=== PATIENT | male | born 1990 | race Caucasian/White ===

== ENCOUNTER 2017-04-21 13:49 | Emergency (ER) | payer BC ==
[~2017-04-21] VITALS: Ht 172.7 cm; Wt 124.7 kg
--- OUTSIDE RECORDS SUMMARY | 2017-04-21 14:07 | External Medical Summary Rpt | CCD ---
Author Author , ANEESH MELENDREZ Address Unknown Phone [email or web address] Care Team Providers Care Band Singer Name Role Phone VIOLET CARLENE, Unavailable Unavailable CARLENE LAZO JESSICA D, Unavailable Unavailable [facility] Unavailable Unavailable [facility], [facility] LONI BUCIO, Unavailable Unavailable LONI BUCIO WILLIAM A, Unavailable Unavailable [facility]ET [facility] Unavailable Unavailable PHYSICIANS, [facility] Unavailable Unavailable PHARMACY [facility] Unavailable Unavailable PHARMACY, [facility], Unavailable Unavailable [facility] RICHARD S, Unavailable Unavailable SIGIFREDO MARTINEZ KIMBERLY, KEEF, Unavailable Unavailable ABBI JOHNSON V, Unavailable Unavailable ABBI MCKEON V [facility] Unavailable Unavailable [place], [facility], [facility], [facility] BENEFITS ANALYST Unavailable Unavailable [facility] BENEFITS ANALYST [facility] Unavailable Unavailable [facility] RADIOLOGY ASSOCIAT MARKELL COSTA, Unavailable Unavailable MARKELL COSTA IRVING, PECK, Unavailable Unavailable [facility] Unavailable Unavailable OF [facility], [facility] SAM ARGUELLO, Unavailable Unavailable SAM ARGUELLO [facility] Unavailable Unavailable EMERGENCY PHYS, [facility] [id number], Unavailable Unavailable [facility] [id number] [facility] Unavailable Unavailable #1569, [facility] VELVET DE PAZ III, Unavailable Unavailable VELVET DE PAZ III Continuity of Care Document - 06-24-2007 through 2016 Problems Code Diagnosis DOS Provider Status [id number] CONTUSION 03-30-2016 [facility] LEFT EMERGENCY HAND PHYSICIANS INITIAL ENCOUNTER [id number] UNSPECIFIED 03-30-2016 RADIOLOGY INJURY UNS ASSOCIATES WRIST HAND OF [facility] FINGERS INIT [id number] PAIN IN 03-08-2016 [place] RIGHT [facility] RADIOLOGY ASSOCIAT [id number] CONTUSION 03-08-2016 [facility] OF RIGHT N EMERGENCY HAND PHYS INITIAL ENCOUNTER [id number] UNSPECIFIED 03-08-2016 [facility] INJURY RT RADIOLOGY WRIST HAND ASSOCIAT FINGERS INITIAL [id number] EXPOSURE TO 03-08-2016 [facility] OTHER N EMERGENCY SPECIFIED PHYS FACTORS INITIAL ENC V51681 PAIN IN 02-21-2016 RADIOLOGY LEFT ASSOCIATES SHOULDER OF [facility] [id number] PAIN IN 02-21-2016 RADIOLOGY UNSPECIFIED ASSOCIATES SHOULDER OF [facility] [id number] STRN UNS 02-21-2016 [facility] M&T SHLDR EMERGENCY UP ARM LEVL PHYSICIANS LT ARM INIT ENC T1490 INJURY 02-21-2016 RADIOLOGY UNSPECIFIED ASSOCIATES OF [facility] 7840 HEADACHE 02-13-2009 [facility] HEALTH CENTRAL BANK ACCT 9190 ABRASION/FR 02-07-2009 [facility] ICION BURN [facility] MX&UNS CENTRAL SITE W/O BANK ACCT INF 9221 CONTUSION 01-11-2009 [facility] CHEST EMERGENCY WALL SERVICES ASSOCIATES 9199 OT&UNSPEC 10-27-2008 DHS/CO SUP INJURY HEALTH OT CENTRAL MX&UNSPEC BANK ACCT SITES INF 14584 PAIN IN 10-25-2008 [facility]INT, DIAGNOSTIC ANKLE AND CENTER, [facility] FOOT 13090 CONTUSION 10-25-2008 SH[facility]ICE ME OF FO[facility] CENTER[facility] 9599 INJURY 10-25-2008 [facility] OTHER AND RADIOLOGY UNSPECIFIED ASSOCIATES PSC UNSPECIFIED SITE 9597 INJURY 10-14-2008 DHS/CO OTHER&UNSPE HEALTH CIFIED KNEE CENTRAL LEG BANK ACCT ANKLE&FOOT 68594 PAIN IN 09-08-2008 [facility], RADIOLOGY LOWER LEG ASSOCIATES PSC 8449 SPRAIN&STRA 09-08-2008 JACKELIN IN OF EMERGENCY UNSPECIFIED SERVICES SITE OF ASSOCIATES KNEE&LEG 460 ACUTE 08-22-2008 [facility] NASOPHARYNG PRIMARY ITIS CARE CENTERINC V703 OT GENERAL 08-22-2008 [facility] MEDICAL PRIMARY EXAMINATION CARE ADMIN CENTERINC PURPOSES 4619 ACUTE 07-07-2008 [facility]ICE [facility] SINUSITIS, PRIMARY UNSPECIFIED CARE CENTERINC 462 ACUTE 07-07-2008 [facility] PHARYNGITIS PRIMARY CARE CENTERINC 7841 THROAT PAIN 07-06-2008 [facility] HEALTH CENTRAL BANK ACCT 00638 HORDEOLUM 06-24-2008 VIOLET, EXTERNUM CARLENE 3670 HYPERMETROP 04-08-2008 [facility] 79260 REGULAR 04-08-2008 [facility] ASTIGMATISM OPTICAL 6809 CARBUNCLE 03-01-2008 [facility] FURUNCLE OF FAMILY CARE, INC. UNSPECIFIED SITE 6829 CELLULITIS 11-23-2007 HEALTH AND ABSCESS POINT OF FAMILY UNSPECIFIED CARE, INC. SITE 3814 NONSUPPRATV 10-14-2007 HEALTH OTITIS POINT MEDIA NOT FAMILY SPEC CARE, INC. ACUT/CHRON 11402 CENTRAL 10-14-2007 [facility] HEARING [facility] LOSS [facility] CARE, INC. 95417 ONYCHIA AND 08-19-2007 JACKELIN PARONYCHIA EMERGENCY OF FINGER SERVICES ASSOC PSC 7295 PAIN IN 08-19-2007 BRYON MARTINEZ S TISSUES OF LIMB 4659 ACUTE URIS 06-24-2007 [facility] UNSPECIFIED FAMILY SITE CARE, INC. Medications Na ND Rx Da Fi Fi Am Da Di Ph RX Ph St me C No te ll ll ou ys ag ar # ys at rm s nt no ma ic us Or Da si cy ia de te s n re d GARCIA 53 05 05 00 20 10 WA 74 KE Ac LF 74 -1 -2 .0 L- 06 EF ti AM 60 2- 1- 00 MA 12 ve ET 27 20 20 RT 3 KI HO 20 09 09 MB XA 5 PH ER ZO AR LY LE MA -T CY MP #1 DS 56 9 TA BL ET ET 51 03 04 00 14 3 WA 73 RH Ac OD 67 -2 -0 .0 L- 98 OD ti OL 24 6- 9- 00 MA 18 ES ve AC 01 20 20 RT 3 60 09 09 ED 20 1 PH GA 0 AR R MG MA L CY CA PS #1 UL 56 E 9 63 01 01 00 20 10 MA 60 GI Ac 30 -2 -3 .0 YS 06 LL ti 40 2- 0- 00 45 IS ve 76 20 20 LL 9 32 09 09 E AN 0 OB NE /G E YN FA RI LY HE AL TH 00 01 01 00 3. 5 WA 73 No Ac 16 -0 -1 50 L- 84 t ti 80 9- 5- 0 MA 52 Av ve 07 20 20 RT 6 ai 03 09 09 la 8 PH bl AR e MA CY #1 56 9 GARCIA 53 09 09 00 20 10 FL 60 ME Ac LF 48 -1 -2 .0 AG 08 YE ti AM 90 6- 6- 00 G 00 RS ve ET 14 20 20 SP 3 HO 60 08 08 RI TH XA 5 NG OM ZO S LE PH E -T AR MP MA CY DS TA BL ET MU 45 09 09 00 22 7 FL 60 ME Ac PI 80 -1 -2 .0 AG 08 YE ti RO 20 6- 6- 00 G 00 RS ve CI 11 20 20 SP 2 N 22 08 08 RI TH 2% 2 NG OM S OI PH E NT AR ME MA NT CY GARCIA 53 03 04 00 40 10 WA 73 No Ac LF 74 -1 -1 .0 L- 33 t ti AM 60 0- 7- 00 MA 51 Av ve ET 27 20 20 RT 4 ai HO 20 08 08 la XA 5 PH bl ZO A1 e LE 0- -T 15 MP 69 DS TA BL ET 63 03 04 00 20 10 WA 73 No Ac 30 -0 -0 .0 L- 32 t ti 40 5- 7- 00 MA 74 Av ve 71 20 20 RT 4 ai 32 08 08 la 0 PH bl A1 e 0- 15 69 60 01 03 00 12 6 DE 63 No Ac 25 -0 -2 0. AN 59 t ti 80 9- 4- 00 S 43 Av ve 23 20 20 0 PH 7 ai 91 08 08 AR la 6 MA bl CY e Encounters Encounter Start End Date Code Location Performer Type Date [facility] ANNE MARIE - 8 8 W [facility]
--- OUTSIDE RECORDS SUMMARY | 2017-04-21 14:07 | External Medical Summary Rpt | CCD ---
Author Author , ANEESH MELENDREZ Address Unknown Phone [email or web address] Care Team Providers Care Obstetrical Nurse Name Role Phone VIOLET CARLENE, Unavailable Unavailable CARLENE LAZO JESSICA D, Unavailable Unavailable [facility] Unavailable Unavailable [facility], [facility] LONI BUCIO, Unavailable Unavailable LONI BUCIO WILLIAM A, Unavailable Unavailable [facility]ET [facility] Unavailable Unavailable PHYSICIANS, [facility] Unavailable Unavailable PHARMACY [facility] Unavailable Unavailable PHARMACY, [facility], Unavailable Unavailable [facility] RICHARD S, Unavailable Unavailable SIGIFREDO MARTINEZ KIMBERLY, KEEF, Unavailable Unavailable ABBI JOHNSON V, Unavailable Unavailable ABBI MCKEON V [facility] Unavailable Unavailable [place], [facility], [facility], [facility] HEALTH CARE CONSULTANT Unavailable Unavailable [facility] HEALTH CARE CONSULTANT [facility] Unavailable Unavailable [facility] RADIOLOGY ASSOCIAT MARKELL COSTA, Unavailable Unavailable MARKELL COSTA IRVING, PECK, Unavailable Unavailable [facility] Unavailable Unavailable OF [facility], [facility] SAM ARGUELLO, Unavailable Unavailable SAM ARGUELLO [facility] Unavailable Unavailable EMERGENCY PHYS, [facility] PHYS [facility] [id number], Unavailable Unavailable [facility] [id number] [facility] Unavailable Unavailable #1569, [facility] VELVET DE PAZ III, Unavailable Unavailable VELVET DE PAZ III Continuity of Care Document - 06-24-2007 through 2016 Problems Code Diagnosis DOS Provider Status [id number] CONTUSION 03-30-2016 [facility] LEFT EMERGENCY HAND PHYSICIANS INITIAL ENCOUNTER [id number] UNSPECIFIED 03-30-2016 RADIOLOGY INJURY UNS ASSOCIATES WRIST HAND OF [facility] FINGERS INIT B91360 PAIN IN 03-08-2016 [place] RIGHT HAND RADIOLOGY ASSOCIAT [id number] CONTUSION 03-08-2016 [facility] OF RIGHT N EMERGENCY HAND PHYS INITIAL ENCOUNTER [id number] UNSPECIFIED 03-08-2016 [place] INJURY RT RADIOLOGY WRIST HAND ASSOCIAT FINGERS INITIAL [id number] EXPOSURE TO 03-08-2016 [facility] OTHER N EMERGENCY SPECIFIED PHYS FACTORS INITIAL ENC O59536 PAIN IN 02-21-2016 RADIOLOGY LEFT ASSOCIATES SHOULDER OF [facility] Q07133 PAIN IN 02-21-2016 RADIOLOGY UNSPECIFIED ASSOCIATES SHOULDER OF [facility] [id number] STRN UNS 02-21-2016 [facility] M&T SHLDR EMERGENCY UP ARM LEVL PHYSICIANS LT ARM INIT ENC T1490 INJURY 02-21-2016 RADIOLOGY UNSPECIFIED ASSOCIATES OF [facility] 7840 HEADACHE 02-13-2009 [facility] CENTRAL BANK ACCT 9190 ABRASION/FR 02-07-2009 [facility] ICION BURN [facility] MX&UNS CENTRAL SITE W/O BANK ACCT INF 9221 CONTUSION 01-11-2009 [facility] EMERGENCY WALL SERVICES ASSOCIATES 9199 OT&UNSPEC 10-27-2008 [facility] SUP INJURY HEALTH OT CENTRAL MX&UNSPEC BANK ACCT SITES INF 45689 PAIN IN 10-25-2008 [facility]INT, DIAGNOSTIC ANKLE AND CENTER, [facility] FOOT 09690 CONTUSION 10-25-[address] [facility] FO[facility] 9599 INJURY 10-25-2008 [facility] OTHER AND RADIOLOGY UNSPECIFIED ASSOCIATES PSC UNSPECIFIED SITE 9597 INJURY 10-14-2008 [facility] OTHER&UNSPE HEALTH CIFIED KNEE CENTRAL LEG BANK ACCT ANKLE&FOOT 08278 PAIN IN 09-08-2008 [facility], RADIOLOGY LOWER LEG ASSOCIATES PSC 8449 [...] PAIN 07-06-2008 [facility] HEALTH CENTRAL BANK ACCT 65203 HORDEOLUM 06-24-2008 VIOLET, EXTERNUM CARLENE 3670 HYPERMETROP 04-08-2008 [facility] 56792 REGULAR 04-08-2008 J[facility]UA ASTIGMATISM OPTICAL 6809 CARBUNCLE 03-01-2008 [facility] FURUNCLE OF FAMILY CARE, INC. UNSPECIFIED SITE 6829 CELLULITIS 11-23-2007 HEALTH AND ABSCESS [facility] OF FAMILY UNSPECIFIED CARE, INC. SITE 3814 NONSUPPRATV 10-14-2007 HEALTH OTITIS POINT MEDIA NOT FAMILY SPEC CARE, INC. ACUT/CHRON 61167 CENTRAL 10-14-2007 [facility]ALTH HEARING [facility] LOSS [facility] CARE, INC. 33503 ONYCHIA AND 08-19-2007 JACKELIN PARONYCHIA EMERGENCY OF [...] 0 OB NE /G E YN FA LA LY HE AL TH 00 01 01 [...] Date Code Location Performer [facility] ANNE MARIE - 8 8 W [facility]
--- OUTSIDE RECORDS SUMMARY | 2017-04-21 14:08 | External Medical Summary Rpt ---
Author Author ANEESH Huertas, ANEESH Production Organization [employer] Address Unknown Phone Unavailable
--- OUTSIDE RECORDS SUMMARY | 2017-04-21 14:08 | External Medical Summary Rpt | CCD ---
Author Author , ANEESH MELENDREZ Address Unknown Phone [email or web address] Name Relationship Address Phone JUAN RAMON, Next Of Kin Unknown Unavailable LOIS Immunization Name Date Rout CVX Reac Dose Comm Prov Is Faci e tion ent ider Refu lity Give sed n Tdap 08-1 115 999 Hist 1005 No 1005 , 2-20 oric 00 00 Adso 16 al rbed Info rmat ion - Sour ce Unsp ecif ied Td 05-0 9 999 Hist H181 No H181 (adry 5-20 oric lt), 05 al Info adso rmat rbed ion - Sour ce Unsp ecif ied Hep 03-2 8 999 Hist H181 No H181 B, 6-20 oric ped/ 03 al adol Info rmat ion - Sour ce Unsp ecif ied Hep 01-0 8 999 Hist H181 No H181 B, 7-20 oric ped/ 03 al adol Info rmat ion - Sour ce Unsp ecif ied Hep 11-2 8 999 Hist H181 No H181 B, 1-20 oric ped/ 02 al adol Info rmat ion - Sour ce Unsp ecif ied Pranav 12-0 2 999 Hist H181 No H181 o-OP 4-19 oric V 96 al Info rmat ion - Sour ce Unsp ecif ied DTaP 12-0 Intr 107 999 Hist H181 No H181 , UF 4-19 amus oric 96 cula al r Info rmat ion - Sour ce Unsp ecif ied MMR 12-0 3 999 Hist H181 No H181 4-19 oric 96 al Info rmat ion - Sour ce Unsp ecif ied
--- OUTSIDE RECORDS SUMMARY | 2017-04-21 14:08 | External Medical Summary Rpt | CCD ---
Author Author , ANEESH Organization [facility] Address Unknown Phone [email or web address] Care Team Providers Care Stationary Boiler Fireman Name Role Phone VIOLET CARLENE, Unavailable Unavailable CARLENE LAZO JESSICA D, Unavailable Unavailable [facility] Unavailable Unavailable [facility], [facility] LONI BUCIO, Unavailable Unavailable LONI BUCIO WILLIAM A, Unavailable Unavailable VEL[facility]ET P[facility] Unavailable Unavailable PHYSICIANS, [facility]YSIC[facility] Unavailable Unavailable PHARMACY [facility] Unavailable Unavailable PHARMACY, [facility], Unavailable Unavailable [facility] RICHARD S, Unavailable Unavailable SIGIFREDO MARTINEZ KIMBERLY, KEEF, Unavailable Unavailable ABBI JOHNSON V, Unavailable Unavailable ABBI MCKEON V [facility] Unavailable Unavailable CENTER, [facility], [facility], [facility] INSULATION SUPERVISOR Unavailable Unavailable [facility] INSULATION SUPERVISOR [facility] Unavailable Unavailable [facility] RADIOLOGY ASSOCIAT MARKELL COSTA, Unavailable Unavailable MARKELL COSTA IRVING, PECK, Unavailable Unavailable [facility] Unavailable Unavailable OF [facility], [facility] SAM ARGUELLO, Unavailable Unavailable SAM ARGUELLO [facility] Unavailable Unavailable EMERGENCY PHYS, [facility]GENC[facility] PH[facility] [id number], Unavailable Unavailable [facility] [id number] [facility] Unavailable Unavailable #1569, [facility] VELVET DE PAZ III, Unavailable Unavailable VELVET DE PAZ III Continuity of Care Document - 06-24-2007 through 2016 Problems Code Diagnosis DOS Provider Status [id number] CONTUSION 03-30-2016 [facility] OF LEFT EMERGENCY HAND PHYSICIANS INITIAL ENCOUNTER [id number] UNSPECIFIED 03-30-2016 RADIOLOGY INJURY UNS ASSOCIATES WRIST HAND OF [facility] FINGERS INIT U92449 PAIN IN 03-08-2016 [place] RIGHT HAND RADIOLOGY ASSOCIAT [id number] CONTUSION 03-08-2016 [facility] OF RIGHT N EMERGENCY HAND PHYS INITIAL ENCOUNTER [id number] UNSPECIFIED 03-08-2016 [place] INJURY RT RADIOLOGY WRIST HAND ASSOCIAT FINGERS INITIAL [id number] EXPOSURE TO 03-08-2016 [facility] OTHER N EMERGENCY SPECIFIED PHYS FACTORS INITIAL ENC W24913 PAIN IN 02-21-2016 RADIOLOGY LEFT ASSOCIATES SHOULDER OF [facility] X71351 PAIN IN 02-21-2016 RADIOLOGY UNSPECIFIED ASSOCIATES SHOULDER OF [facility] [id number] STRN UNS 02-21-2016 [facility] M&T SHLDR EMERGENCY UP ARM LEVL PHYSICIANS LT ARM INIT ENC T1490 INJURY 02-21-2016 RADIOLOGY UNSPECIFIED ASSOCIATES [facility] 7840 HEADACHE 02-13-2009 [facility] HEALTH CENTRAL BANK ACCT 9190 ABRASION/FR 02-07-2009 [facility]/CO ICION BURN [facility] MX&UNS CENTRAL SITE W/O BANK ACCT INF 9221 CONTUSION 01-11-2009 JACKELIN OF CHEST EMERGENCY WALL SERVICES ASSOCIATES 9199 OTH&UNSPEC 10-27-2008 [facility] SUP INJURY HEALTH OT CENTRAL MX&UNSPEC BANK ACCT SITES INF 01543 PAIN IN 10-25-2008 [facility], [facility], [facility] FOOT 52676 CONTUSION 10-25-2008 SHANICE CO OF FOOT PRIMARY CARE CENTERINC 9599 INJURY 10-25-2008 [facility] OTHER AND RADIOLOGY UNSPECIFIED ASSOCIATES PSC UNSPECIFIED SITE 9597 INJURY 10-14-2008 [facility]/CO OTHER&UNSPE HEALTH CIFIED KNEE CENTRAL LEG BANK ACCT ANKLE&FOOT 84832 PAIN IN 09-08-2008 [facility], RADIOLOGY LOWER LEG ASSOCIATES PSC 8449 SPRAIN&STRA 09-08-2008 JACKELIN IN OF EMERGENCY UNSPECIFIED SERVICES SITE OF ASSOCIATES KNEE&LEG 460 ACUTE 08-22-2008 SHANICE [facility] NASOPHARYNG PRIMARY ITIS CARE CENTERINC V703 OT GENERAL 08-22-2008 SHANICE LOPEZ MEDICAL PRIMARY EXAMINATION CARE ADMIN CENTERINC PURPOSES 4619 ACUTE 07-07-2008 SHANICE CO SINUSITIS, PRIMARY UNSPECIFIED CARE CENTERINC 462 ACUTE 07-07-2008 SHANICE LOPEZ PHARYNGITIS PRIMARY CARE CENTERINC 7841 THROAT PAIN 07-06-2008 [facility] HEALTH CENTRAL BANK ACCT 06000 HORDEOLUM 06-24-2008 VIOLET, EXTERNUM CARLENE 3670 HYPERMETROP 04-08-2008 [facility] [place] OPTICAL 74758 REGULAR 04-08-2008 [facility] ASTIGMATISM OPTICAL 6809 CARBUNCLE 03-01-2008 [facility] FURUNCLE OF FAMILY CARE, INC. UNSPECIFIED SITE 6829 CELLULITIS 11-23-2007 HEALTH AND ABSCESS POINT OF FAMILY UNSPECIFIED CARE, INC. SITE 3814 NONSUPPRATV 10-14-2007 HEALTH OTITIS POINT MEDIA NOT FAMILY SPEC CARE, INC. ACUT/CHRON 86050 CENTRAL 10-14-2007 [facility]ALTH HEARING [facility] LOSS FAMILY CARE, INC. 68462 ONYCHIA AND 08-19-2007 JACKELIN PARONYCHIA EMERGENCY OF [...] 0 OB NE /G E YN FA SD LY HE AL TH 00 01 01 [...] End Date Code Location Performer Type Date [facility] W [facility]
--- OUTSIDE RECORDS SUMMARY | 2017-04-21 14:08 | External Medical Summary Rpt | CCD ---
Author Author , ANEESH Organization [facility] Address Unknown Phone [email or web address] Care Team Providers Care Survey Analyst Name Role Phone VIOLET CARLENE, Unavailable Unavailable CARLENE LAZO JESSICA D, Unavailable Unavailable [facility] Unavailable Unavailable [facility], [facility] LONI BUCIO, Unavailable Unavailable LONI BUCIO WILLIAM A, Unavailable Unavailable VELVET P[facility] Unavailable Unavailable PHYSICIANS, [facility] EMERG[facility] PHYSICIANS [facility] Unavailable Unavailable PHARMACY [facility] Unavailable Unavailable PHARMACY, [facility], Unavailable Unavailable [facility] RICHARD S, Unavailable Unavailable SIGIFREDO MARTINEZ KIMBERLY, KEEF, Unavailable Unavailable ABBI JOHNSON V, Unavailable Unavailable ABBI MCKEON V [facility] Unavailable Unavailable CENTER, [facility], [facility], [facility] NON GARMENT SEWING MACHINE OPERATOR Unavailable Unavailable [facility] NON GARMENT SEWING MACHINE OPERATOR [facility] Unavailable Unavailable [facility] RADIOLOGY ASSOCIAT MARKELL COSTA, Unavailable Unavailable MARKELL COSTA IRVING, PECK, Unavailable Unavailable [facility] Unavailable Unavailable [facility], RADIOLOGY [facility]OC[facility] SAM ARGUELLO, Unavailable Unavailable SAM ARGUELLO [facility] Unavailable Unavailable EMERGENCY PHYS, [facility] EMERGENCY PHYS [facility] [id number], Unavailable Unavailable [facility] [id number] [facility] Unavailable Unavailable #1569, [facility] VELVET DE PAZ III, Unavailable Unavailable VELVET DE PAZ III Continuity of Care Document - 06-24-2007 through 2016 Problems Code Diagnosis DOS Provider Status [id number] CONTUSION 03-30-2016 [facility] OF LEFT EMERGENCY HAND PHYSICIANS INITIAL ENCOUNTER [id number] UNSPECIFIED 03-30-2016 RADIOLOGY INJURY UNS ASSOCIATES WRIST HAND OF [facility] FINGERS INIT O55977 PAIN IN 03-08-2016 [place] RIGHT HAND RADIOLOGY ASSOCIAT [id number] CONTUSION 03-08-2016 [facility] OF RIGHT N EMERGENCY HAND PHYS INITIAL ENCOUNTER [id number] UNSPECIFIED 03-08-2016 [place] INJURY RT RADIOLOGY WRIST HAND ASSOCIAT FINGERS INITIAL [id number] EXPOSURE TO 03-08-2016 [facility] OTHER N EMERGENCY SPECIFIED PHYS FACTORS INITIAL ENC P15097 PAIN IN 02-21-2016 RADIOLOGY LEFT ASSOCIATES SHOULDER OF [facility] Y02380 PAIN IN 02-21-2016 RADIOLOGY UNSPECIFIED ASSOCIATES SHOULDER OF [facility] [id number] STRN UNS 02-21-2016 [facility] M&T SHLDR EMERGENCY UP ARM LEVL PHYSICIANS LT ARM INIT ENC T1490 INJURY 02-21-2016 RADIOLOGY UNSPECIFIED ASSOCIATES OF [facility] 7840 HEADACHE 02-13-2009 [facility] HEALTH CENTRAL BANK ACCT 9190 ABRASION/FR 02-07-2009 [facility] ICION BURN [facility] MX&UNS CENTRAL SITE W/O BANK ACCT INF 9221 CONTUSION 01-11-2009 JACKELIN OF CHEST EMERGENCY WALL SERVICES ASSOCIATES 9199 OTH&UNSPEC 10-27-2008 [facility] SUP INJURY HEALTH OT CENTRAL MX&UNSPEC BANK ACCT SITES INF 12355 PAIN IN 10-25-2008 [place] [facility], [facility]AGNOSTIC [facility]LE [facility] C[facility] FOOT 99308 CONTUSION 10-25-2008 [facility] CO OF FOOT PRIMARY CARE CENTERINC 9599 INJURY 10-25-2008 [place] OTHER AND RADIOLOGY UNSPECIFIED ASSOCIATES PSC UNSPECIFIED SITE 9597 INJURY 10-14-2008 DHS/CO OTHER&UNSPE HEALTH CIFIED KNEE CENTRAL LEG BANK ACCT ANKLE&FOOT 50294 PAIN IN 09-08-2008 [place] [facility], RADIOLOGY LOWER LEG ASSOCIATES PSC 8449 [...] PAIN 07-06-2008 [facility] HEALTH CENTRAL B[facility] ACCT 38103 HORDEOLUM 06-24-2008 VIOLET, EXTERNUM CARLENE 3670 HYPERMETROP 04-08-2008 [facility] [place] OPTICAL 21096 REGULAR 04-08-2008 [facility] ASTIGMATISM OPTICAL 6809 CARBUNCLE 03-01-2008 [facility] UNSPECIFIED SITE 6829 CELLULITIS 11-23-2007 [facility] AND ABSCESS [facility] OF FAMILY UNSPECIFIED CARE, INC. SITE 3814 NONSUPPRATV 10-14-2007 [facility] OTITIS POINT MEDIA NOT FAMILY SPEC CARE[facility] INC[facility] ACUT/CHRON 04518 CENTRAL 10-14-2007 [facility] HEARING [facility] LOSS [facility] 85383 ONYCHIA AND 08-19-2007 JACKELIN PARONYCHIA EMERGENCY OF [...] 0 OB NE /G E YN FA ME LY HE AL TH 00 01 01 [...] End Date Code Location Performer Type Date [facility] - [address] [facility] [address] [facility] [address] [facility]
--- OUTSIDE RECORDS SUMMARY | 2017-04-21 14:08 | External Medical Summary Rpt | CCD ---
Author Author , ANEESH MELENDREZ Address Unknown Phone [email or web address] Support Name Relationship Address Phone JUAN RAMON, [...]
--- NOTE | 2017-04-21 15:03 | [facility]gent [facility] Report ---
History of Present Issue Date/Time Seen by Provider 04/21/17 1503 Visit Reason Pt arrived:Walked Presenting Problem:PT REPORTS SINUS PRESSURE AND CONGESTION, SORE THROAT X4 DAYS Location if Accident: Onset of symptoms date/time:04/17/17/ or onset unknown for:MEDICAL HX UNKNOWN Have you (or family members/close friends) recently traveled outside the [place]? If Yes, where/when: Have you had exposure to infectious disease within the past month? TB? Other? Specify: c/o sore throat, rhinorrhea, nasal congestion, PND, cough, head congestion since , 4 days ago. Hasn't taken or tried anything for symptoms. Subjective fever as described by waking up this morning hot and drenched w/ sweat. Hasn't checked temp. Chest aching at times only w/ cough. + smoker "but I haven't in 3 days". Mild SOA w/ excessive cough. Nonproductive. No known sick contacts. Source patient Exam Limitations no limitations ALLERGIES Coded Allergies: No Known Allergies (04/21/17) History Medical History General Angina: No ND: No Hypertension? No COPD? No Asthma? No Thyroid Problems? No Diabetes? No Surgical Hx Previous Surgery?Y HERNIA REPAIR Social History Smoking Hx Smoker: Current Every Day Smoker Alcohol Alcohol: No Drug Use denies Review of Systems All Other Systems Reviewed and Negative Constitutional see HPI, denies weakness Eyes denies drainage ENT see HPI. denies: ear pain, ear discharge, throat swelling. Respiratory see HPI Cardiovascular see HPI, denies palpitations Gastrointestinal denies no symptoms reported Musculoskeletal denies joint pain Skin denies rash Psychiatric/Neurological denies headache Physical Exam Vital Signs Vital Signs Date Time Temp Pulse Resp B/P Pulse O2 O2 Flow FiO2 Ox Delivery Rate 04/21 1501 97.7 83 20 165/97 99 04/21 1352 97.7 83 20 165/97 99 General Appearance normal appearance, no apparent distress Eye Exam - bilateral eye normal exam Ear, Nose, Throat normal ENT inspection (x/ mild nasal congestion) Neck non-tender, supple Respiratory Status Yes: trachea midline, chest symmetrical. No: respiratory distress, use of accessory muscles, pain on inspiration, pain on expiration, productive cough, non productive cough. Lung Sounds anterior: lungs clear. posterior: lungs clear. bilateral: lungs clear. Cardiovascular regular rate/rhythm, no peripheral edema, no murmur Neurologic alert, oriented x 3 Mental status normal mood/affect Skin normal color, warm/dry Lymphatic no adenopathy Medical Decision Making LABS/Meds/Orders Pt receiving controlled substance in ED? No Results/Orders Laboratory Tests 04/21/17 1455: Influenza Type A Ag NOT DETECTED, Influenza Type B Ag NOT DETECTED Orders Procedure Date/time Status [facility] [place] [facility] A,B 04/21 1455 Complete Departure Departure Time of Disposition 1526 Disposition DC Home or Self Care(routine) Clinical Impression Primary Impression: Upper respiratory virus Condition STABLE Referrals NO REFERRAL IMMEDIATELY for new or worsening symptoms OR no noticeable improvement over the next 48-72 hours. 911 for difficulty breathing or swallowing. Patient Instructions DI for Viral Upper Respiratory Infection -- Adult Additional Instructions * No sign of bacterial infection. Likely viral. Virus can take 7-14 days to run their course * Monitor Temp. Feeling feverish and having a fever are not the same thing. Tylenol every 4 hours as needed no more then 5 times a day or 4000mg in 24 hours and/or ibuprofen every 6 hours as needed no more then 3200mg in 24 hours (as long as your primary care doctor has told you that it is ok to take both) for fever/aches/pain. ER if fever no less than 101 despite tylenol and ibuprofen * Encourage fluids, water, gatorade, powerade, pedialyte if infant/toddler/child * warm salt water gargles * warm fluids * sore throat lozenges * sleep elevated * humidifier/vaporizer * flonase 2 sprays each nostril daily but may take 2-3 days to notice improvement with it. * Bromfed may cause drowsiness. Know how it effects you (or your child) before driving, caring for small children, or sending your child to school. No other antihistamines/allergy medications while taking bromfed. Discharge Counseling Counseled pt/family regarding diagnosis, test results, medications/RX, home care, follow up needs Prescriptions Current Visit Scripts D-METHORPHAN HB/P-EPD HCL/BPM (Bromfed Dm Cough Syrup) 10 ML PO QIDP PRN cough #240 ML Fluticasone Propionate (Flonase 50 Mcg Nasal [place]) 2 SPRAY NA DAILY #1 BOT at 1538
[2017-04-21 15:28] VITALS: BP 165/97
[2017-04-21] MEDS ORDERED: BROMFED DM COU118 ML PO (15:28)
[2017-04-21] MEDS ORDERED: FLONASE 50 MCG16 GM (15:28)
== END 2017-04-21 15:30 | disposition home or self-care (01) ==
LOC: ER 13:49 → UTC 14:04 → ER 14:04 → UTC 15:30
DX: J06.9 Acute upper respiratory infection, unspecified (principal); F17.210 Nicotine dependence, cigarettes, uncomplicated